=== PATIENT | male | born 1970 | race Caucasian/White ===

== ENCOUNTER 2020-08-08 14:44 | Emergency (ER) | payer OTHER ==
[~2020-08-08] VITALS: Ht 182.9 cm; Wt 63.0 kg
[~2020-08-08 14:44] MED LIST: ALEVE220 M1 OR; ARIPIPRAZOLE10 MG PO; CIPRO500 MG OR; LAMICTAL100 M1 PO; LOVASTATIN20 M1 PO; NIFEDIPINE60 MG PO; OMEPRAZOLE DR40 MG PO; TRAMADL/APAP OR
[2020-08-08] MEDS ORDERED: MOTRIN800 MG PO (16:58)
[2020-08-08 17:05] VITALS: BP 150/73
== END 2020-08-08 17:14 | disposition home or self-care (01) ==
LOC: ED 14:44
DX: I80.02 Phlebitis and thrombophlebitis of superficial vessels of left lower extremity (principal); I10 Essential (primary) hypertension; F17.200 Nicotine dependence, unspecified, uncomplicated; Z86.718 Personal history of other venous thrombosis and embolism

== ENCOUNTER 2021-01-20 08:10 | Day surgery (SDC) | payer OTHER ==
[~2021-01-20] VITALS: Ht 182.9 cm; Wt 59.0 kg
[~2021-01-20 08:10] MED LIST changes: +FAMOTIDINE20 M1 PO; +LEVOCETIRIZINE D5 MG PO; +MELOXICAM7.5 MG PO; +MOTRIN800 MG PO; +XARELTO10 MG PO; +ZOFRAN4 MG/TAB PO
[2021-01-20 10:51] VITALS: BP 144/88
== END 2021-01-20 10:55 | disposition home or self-care (01) ==
LOC: ENDO 08:10 → ORM 11:15 → ENDO 11:15 → ORM 12:15
PROVIDERS: ATTEND Surgery
DX: K25.9 Gastric ulcer, unspecified as acute or chronic, without hemorrhage or perforation (principal); K29.70 Gastritis, unspecified, without bleeding

== ENCOUNTER 2023-01-30 14:56 | Emergency (ER) | payer OTHER ==
[~2023-01-30] VITALS: Ht 182.9 cm; Wt 66.4 kg
[~2023-01-30 14:56] MED LIST changes: +CYCLOBENZAPRINE10 MG PO
[2023-01-30 15:06] VITALS: BP 141/71
[2023-01-30] MEDS ORDERED: GABAPENTIN300 M2 PO (15:17)
[2023-01-30 15:21] LABS: BASO% 0.9 % (0-3); EOS% 8.2 % (0-8); HEMATOCRIT 43.6 % (39.0-50.0); HEMOGLOBIN 14.8 g/dl (14.0-18.0); IMMATURE GRANULOCYTES 0.2 % (0.0-5.0); LYMPH% 37.1 % (15-41); MEAN CELL VOLUME 93.6 fL CALC (80.0-100.0); MEAN CORPUSCULAR HGB 31.8 pG CALC (26.0-32.0); MEAN CORPUSCULAR HGB CONC 33.9 g/dL CAL (32.0-36.0); MONO% 9.2 % (2-13); NEUT# 2.51 thou/uL (1.82-7.42); NEUT% 44.4 % (42-76); RED BLOOD COUNT 4.66 mill/uL (4.70-6.10); RED CELL DISTRI WIDTH 12.5 % (11.5-15.5)
[2023-01-30 15:24] LABS: GFR FOR AFR.AMER. > 60 ML/MIN (>=60 (CALC)); GFR OTHER RACES > 60 ML/MIN (>=60 (CALC))
[2023-01-30 15:31] VITALS: BP 129/67
[2023-01-30 15:39] LABS: ALBUMIN 4.6 g/dL (3.2-5.0); ALKALINE PHOSPHATASE 68 u/l (38-126); ANION GAP 13 (6-22 (CALC)); BUN 11 mg/dL (9-20); BUN/CREATININE RATIO 12 (12-20 (CALC)); CARBON DIOXIDE 24 mmol/l (22-30); CHLORIDE 107 mmol/l (95-108); CREATININE 0.9 mg/dL (0.7-1.3); GFR FOR AFR.AMER. > 60 ML/MIN (>=60 (CALC)); GFR OTHER RACES > 60 ML/MIN (>=60 (CALC)); LIPASE 95 u/l (23-300); POTASSIUM 3.4 mmol/l (3.5-5.1); SGOT/AST 36 u/l (17-59); SODIUM 140 mmol/l (137-146); TOTAL PROTEIN 7.5 g/dL (6.3-8.2)
[2023-01-30 15:48] LABS: URINE BILIRUBIN - DIPSTICK NEGATIVE (NEGATIVE); URINE BLOOD DIPSTICK TRACE-INTACT (NEGATIVE); URINE COLOR YELLOW; URINE GLUCOSE - DIPSTICK NEGATIVE (NEGATIVE); URINE KETONE NEGATIVE (NEGATIVE); URINE LEUK ESTERASE NEGATIVE (NEGATIVE); URINE PH 5.5 (4.5-8.0); URINE PROTEIN - DIPSTICK NEGATIVE (NEG-TRACE); URINE SPECIFIC GRAVITY 1.025; URINE UROBILINOGEN - DIPSTICK 0.2 E.U./dL (0.2)
[2023-01-30 15:49] LABS: URINE NITRITE - DIPSTICK NEGATIVE (Negative)
[2023-01-30 16:54] VITALS: BP 118/78
[2023-01-30 17:00] VITALS: BP 120/78
[2023-01-30] MEDS ORDERED: TRAMADOL HYDROC50 M1 PO (17:19)
[2023-01-30 17:30] VITALS: BP 130/84
[2023-01-30 17:33] VITALS: BP 130/84
== END 2023-01-30 17:51 | disposition home or self-care (01) ==
LOC: ED 14:56
PROVIDERS: Family Medicine
DX: R10.31 Right lower quadrant pain (principal); I10 Essential (primary) hypertension
CPT/HCPCS: Q9967

== ENCOUNTER 2023-03-01 09:46 | Day surgery (SDC) | payer OTHER ==
[~2023-03-01 09:46] MED LIST changes: +GABAPENTIN300 M2 PO; +GABAPENTIN600 MG PO; +TRAMADOL HYDROC50 M1 PO
[2023-03-01] MEDS ORDERED: PERCOCET 5/325M1 TAB PO (13:29)
[2023-03-01 15:41] VITALS: BP 167/86
[2023-03-03] MEDS ORDERED: TRAMADOL HCL50 MG PO (08:43)
== END 2023-03-01 15:35 | disposition home or self-care (01) ==
LOC: ORM 09:46
PROVIDERS: ATTEND Surgery
DX: T85.848A Pain due to other internal prosthetic devices, implants and grafts, initial encounter (principal); I10 Essential (primary) hypertension; F41.9 Anxiety disorder, unspecified; F32.A Depression, unspecified; Y83.8 Other surgical procedures as the cause of abnormal reaction of the patient, or of later complication, without mention of misadventure at the time of the procedure
CPT/HCPCS: C9290; J0131; J0690

== ENCOUNTER 2023-08-25 11:46 | Emergency (ER) | payer OTHER ==
[~2023-08-25] VITALS: Ht 182.9 cm; Wt 68.2 kg
[~2023-08-25 11:46] MED LIST changes: +PERCOCET 5/325M1 TAB PO; +TRAMADOL HCL50 MG PO
[2023-08-25 12:09] VITALS: BP 129/74
[2023-08-25 12:17] LABS: BASO% 0.9 % (0-3); HEMATOCRIT 45.2 % (39.0-50.0); HEMOGLOBIN 15.3 g/dl (14.0-18.0); IMMATURE GRANULOCYTES 0.2 % (0.0-5.0); LYMPH% 31.1 % (15-41); MEAN CELL VOLUME 94.6 fL CALC (80.0-100.0); MEAN CORPUSCULAR HGB CONC 33.8 g/dL CAL (32.0-36.0); NEUT# 3.02 thou/uL (1.82-7.42); NEUT% 53.8 % (42-76); RED BLOOD COUNT 4.78 mill/uL (4.70-6.10)
[2023-08-25 12:37] LABS: ALBUMIN 4.6 g/dL (3.2-5.0); ALKALINE PHOSPHATASE 77 u/l (38-126); ANION GAP 9 (6-22 (CALC)); BILIRUBIN, TOTAL 0.8 mg/dL (0.2-1.3); BUN 12 mg/dL (9-20); BUN/CREATININE RATIO 13 (12-20 (CALC)); CARBON DIOXIDE 28 mmol/l (22-30); CHLORIDE 108 mmol/l (95-108); CREATININE 0.9 mg/dL (0.7-1.3); GFR FOR AFR.AMER. > 60 ML/MIN (>=60 (CALC)); GFR OTHER RACES > 60 ML/MIN (>=60 (CALC)); LIPASE 151 u/l (23-300); POTASSIUM 4.1 mmol/l (3.5-5.1); SGOT/AST 46 u/l (17-59); SODIUM 141 mmol/l (137-146); TOTAL PROTEIN 7.3 g/dL (6.3-8.2)
[2023-08-25 12:45] VITALS: BP 120/76
[2023-08-25 13:29] LABS: URINE BILIRUBIN - DIPSTICK Negative (NEGATIVE); URINE BLOOD DIPSTICK Negative (NEGATIVE); URINE COLOR Yellow; URINE GLUCOSE - DIPSTICK Negative (NEGATIVE); URINE KETONE Negative (NEGATIVE); URINE LEUK ESTERASE Negative (NEGATIVE); URINE NITRITE - DIPSTICK Negative (Negative); URINE PH 8.5 (4.5-8.0); URINE PROTEIN - DIPSTICK Negative (NEG-TRACE); URINE UROBILINOGEN - DIPSTICK 0.2 E.U./dL (0.2)
[2023-08-25 14:01] VITALS: BP 120/76
== END 2023-08-25 14:10 | disposition home or self-care (01) ==
LOC: ED 11:46
PROVIDERS: Family Medicine
DX: R10.31 Right lower quadrant pain (principal); I10 Essential (primary) hypertension; F17.290 Nicotine dependence, other tobacco product, uncomplicated
CPT/HCPCS: Q9967